=== PATIENT | male | born 1940 | race Caucasian/White ===

== ENCOUNTER 2022-08-03 10:38 | Day surgery (SDC) | payer MEDICARE, BC, SELFPAY ==
[2022-08-03] MEDS: TETRACAINE 0.5% OPHTH 1 DROP EYE-RIGHT (10:25)
[2022-08-03] MEDS: TETRACAINE 0.5% OPHTH 1 DROP EYE-LEFT (10:25)
[2022-08-03] MEDS: LACTATED RINGERS 1000 ML 1,000 ML 100 ML IV (10:25)
[2022-08-03 11:04] VITALS: BP 111/76; PULSE 64; RESP 18; TEMP 36.6; O2SAT 96; BMI 36.7
--- NOTE | 2022-08-03 11:12 | W.ANESCHARGE ---
Anesthesia Charges Start Date/Time Anesthesia Start Date: 08/03/22 Anesthesia Start Time: 12:19 Stop Date/Time Anesthesia Stop Date: 08/03/22 Anesthesia Stop Time: 13:44 Summary Extremes of Age - Over 70 or under 1: MDA
[2022-08-03] MEDS: SODIUM CHLORIDE 0.9 % (FLUSH) 10 ML SYRINGE IVF (11:18)
[2022-08-03] MEDS: BUPIVACAINE 0.5 %/EPI 1:200K 30 ML INJECTION ×2 (12:24)
[2022-08-03 13:40] VITALS: BP 130/81; PULSE 65; RESP 18; TEMP 36.4; O2SAT 95
--- NOTE | 2022-08-03 13:43 | W.ANESCHARGE ---
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
[2022-08-03 13:45] VITALS: BP 145/80; PULSE 66; RESP 18; O2SAT 93
--- NOTE | 2022-08-03 13:58 | W.PM.OPTPROC ---
Procedure Note Date of procedure: 08/03/22 Will [facility] bill your pro fee for this procedure?: Yes Procedure Description: SURGEON: Amy Maloney MD PREOPERATIVE DIAGNOSIS: Dermatochalasis, bilateral upper eyelids. POSTOPERATIVE DIAGNOSIS: Dermatochalasis, bilateral upper eyelids. NAME OF OPERATION: Bilateral upper eyelid blepharoplasty. ANESTHESIA: Local monitored anesthesia care. ESTIMATED BLOOD LOSS: Less than 2 cc. COMPLICATIONS: None. IMPLANTS: None. INDICATIONS: The patient is seen today for bilateral upper eyelid blepharoplasty. The patient complains of upper eyelids interfering with vision. I reviewed the visual bates and facial photographs. Surgery was indicated for functional improvement of vision. The risks, benefits and alternatives were discussed pre-operatively. The risks included pain, infection, bleeding, poor cosmetic result, scarring, asymmetry, need for further treatment including surgery, inability to close lids, dry eyes, decreased vision, loss of vision and loss of eye. The benefits included improvement of symptoms. The alternative was observation and no surgery. All questions were answered to the patient's satisfaction, and the patient elected to proceed with the bilateral upper eyelid blepharoplasty. Informed consent was obtained. PROCEDURE: In a sitting position, the upper eyelid crease was marked with a marking pen, and the pinch technique was used to determine the amount of upper eyelid skin to be excised. A calipers was used to measure for symmetry and to confirm an appropriate amount of remaining skin. The patient was taken to the operating room. 4 cc of anesthetic was injected subcutaneously along the full extent of each upper eyelid. This anesthetic was made with 1:1 of 2% lidocaine with epinephrine and 0.5% bupivacaine. Both eyes were prepped and draped in the usual sterile ophthalmic fashion. The following was performed on both the right and left upper eyelid: A #15 blade was used to incise the skin. Bishops and Vargas scissors were used to excise the skin and orbicularis muscle. Handheld cautery was used to achieve hemostasis. The eyelids were examined for symmetry. The skin was closed with a running 6-0 nylon suture. Erythromycin ointment was applied to the wounds. The patient tolerated the procedure well. DISPOSITION: The patient was sent to the recovery room and discharged to home in stable condition. The patient was given my postoperative instructions handout. The patient was told to ice as directed. The patient will apply erythromycin ophthalmic ointment to the eyelids three times a day until the sutures are removed, then for another three days. The patient will follow up in one week for suture removal or sooner as needed. The patient was instructed to call me or go to the emergency department with any sudden change, including dramatic loss of vision, excessive bleeding, redness or discharge from the incisions, or severe pain in the eye.
== END 2022-08-03 14:30 | disposition home or self-care (01) ==
PROVIDERS: PCP Family Medicine; Visit Provider Ophthalmology
PROC: (CPT 15823; principal; 2022-08-03 11:00)
DX: H02.831 Dermatochalasis of right upper eyelid (principal); H02.834 Dermatochalasis of left upper eyelid; H53.40 Unspecified visual field defects
CPT/HCPCS: 15823; 00103; 99100; J2704; J3010; J3490; J7120

== ENCOUNTER 2023-05-08 08:47 | Day surgery (SDC) | payer MEDICARE, BC, SELFPAY ==
[2023-05-08] VITALS (11 sets, daily range): BP systolic 102–142; BP diastolic 63–88; PULSE 58–72; RESP 12–16; TEMP 36.2–37.1; O2SAT 93–98; BMI 34.4
--- NOTE | 2023-05-08 09:17 | W.PM.H&PU ---
History & Physical Update History & Physical Update H&P Reviewed and patient assessed: No changes noted
[2023-05-08] MEDS: LACTATED RINGERS 1000 ML 1,000 ML 100 ML IV ×2 (09:34→11:02)
[2023-05-08] MEDS: CEFAZOLIN 2 GM in 0.9 % SODIUM CHLORIDE Mini-bag 100 ML IVPB (10:35)
[2023-05-08] MEDS: ROPIVACAINE 0.5% 30 ML 150 MG INJECTION (11:28)
--- NOTE | 2023-05-08 11:31 | PM.ORPRC ---
Procedure Note Date of procedure: 05/08/23 Procedure: PREOPERATIVE DIAGNOSIS: 1. Right knee medial meniscus tear 2. Right knee loose bodies POSTOPERATIVE DIAGNOSIS: 1. Right knee medial and lateral meniscus tear 2. Right knee multiple small chondral loose bodies 3. 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 Right knee medial plica PROCEDURE: 1. Right knee arthroscopic partial medial and lateral meniscectomy 2. Right knee limited synovectomy (plica excision) SURGEON: Darell Costello M.D. ELECTRIC UTILITY LINEWORKER: ARMIN Cornejo. Of note, an assistant wrestling coach was critical for this case to aid in patient positioning, knee manipulation, instrument exchange, and closure. ANESTHESIA: Spinal EBL: 2ml TOURNIQUET: 30 min at 300 torr COMPLICATIONS: None evident INDICATIONS: The patient is a pleasant 82-year-old male who has experienced right knee pain particularly with any twisting or turning. Physical exam was concerning for medial meniscus tear, this was confirmed on MRI. Additionally, attempted nonoperative management has been tried, and failed. Thus, surgery was recommended. FINDINGS: Grade 4 chondromalacia diffusely throughout the trochlear groove & medial femoral condyle broadly. Grade 3 chondromalacia lateral tibial plateau weight-bearing portion and lateral femoral condyle as well as patella median ridge and lateral facet. Complex tearing lateral meniscus posterior horn to midbody. Complex tearing posterior horn medial meniscus as well as the anterior horn of both medial and lateral menisci. Multiple small chondral loose bodies seen (greatest measured 5-7 mm in largest dimension). DESCRIPTION OF PROCEDURE: After a thorough discussion of risks, benefits, and alternatives, the patient was brought to the operating room and placed upon the operating table. Induction of anesthesia was undertaken as previously noted. 2g iv Ancef was administered within 1 hr of incision preoperatively. Appropriate time-out was performed identifying proper patient, site, and procedure. The right lower extremity was prepped and draped in the appropriate sterile fashion using ChloraPrep. The limb was exsanguinated and tourniquet inflated. Anterolateral and anteromedial portals were established with an 11 blade, and a diagnostic arthroscopy was performed. This identified the findings as noted above. Following the diagnostic arthroscopy, a partial medial and lateral menisectomy was performed with the combination of basket forceps and a motorized shaver. Following this, the meniscus was re-probed and found to be stable. Approximately 15-20 % of the overall meniscus required resection for each menisci. The torpedo shaver was also utilized for loose body debridement as a were easily sucked into the device. Finally, combination of meniscal biter and torpedo shaver utilized for plica .resection At this stage, the shaver was reinserted into the suprapatellar pouch and all remaining meniscal debris was evacuated. Instruments were removed, excess fluid was drained, and closure performed with 4-0 Monocryl with Steri-Strips. Dressings were applied, the tourniquet deflated, and the patient was awoken from anesthesia and transferred to the PACU in stable condition. PLAN: 1. Weightbear as tolerated operative extremity. Crutch / walker ambulation assistance PRN. 2. Ice, acetominophen and/or ibuprofen, and oxycodone for pain as needed. 3. Knee range of motion and quad sets/straight leg raise regularly 4. Follow up with PA visit in 1-2 weeks for a wound check and possibly to initiate physical therapy.
--- NOTE | 2023-05-08 11:42 | W.ANESCHARGE ---
Anesthesia Charges Start Date/Time Anesthesia Start Date: 05/08/23 Anesthesia Start Time: 10:34 Stop Date/Time Anesthesia Stop Date: 05/08/23 Anesthesia Stop Time: 11:42
--- NOTE | 2023-05-08 12:00 | W.ANESCHARGE ---
Anesthesia Charges Start Date/Time Anesthesia Start Date: 05/08/23 Anesthesia Start Time: 10:34 Stop Date/Time Anesthesia Stop Date: 05/08/23 Anesthesia Stop Time: 11:42 Summary Extremes of Age - Over 70 or under 1: MDA
== END 2023-05-08 13:15 | disposition home or self-care (01) ==
PROVIDERS: PCP Family Medicine; Visit Provider Orthopaedic Surgery Sports Medicine
PROC: (CPT 29870; principal; 2023-05-08 10:30)
DX: S83.231A Complex tear of medial meniscus, current injury, right knee, initial encounter (principal); S83.271A Complex tear of lateral meniscus, current injury, right knee, initial encounter; M23.41 Loose body in knee, right knee; M94.261 Chondromalacia, right knee; M67.51 Plica syndrome, right knee
CPT/HCPCS: 29880; 29875; 01400; 99100; J0690; J1100; J2371; J2405; J2704; J2795; J3010; J7120

== ENCOUNTER 2023-12-08 10:40 | Outpatient (CLI) | payer MEDICARE, BC, SELFPAY ==
--- NOTE | 2023-12-08 12:39 | P.ANES_ITS ---
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
== END 2023-12-08 10:41 | disposition home or self-care (01) ==
LOC: OP CLINIC 10:42
PROVIDERS: PCP Family Medicine; Visit Provider Internal Medicine Gastroenterology
DX: Z12.11 Encounter for screening for malignant neoplasm of colon (principal); D50.9 Iron deficiency anemia, unspecified
CPT/HCPCS: 00813; 43239; 45385; 88305; 99100; J2704; J3490